=== PATIENT | male | born 1960 | race Caucasian/White ===

== ENCOUNTER 2019-10-09 17:18 | Observation (INO) | payer OTHER ==
[~2019-10-09] VITALS: Ht 182.9 cm; Wt 87.1 kg
[~2019-10-09 17:18] MED LIST: BAYER CHEWABLE81 MG PO; BRILINTA90 MG PO; LISINOPRIL10 MG PO; LISINOPRIL2.5 MG PO; LOPRESSOR25 PO; NITROGLYCERIN0.4 MG SL; PANTOPRAZOLE SO40 M1 PO; PERCOCET PO; PLAVIX 75 MG TA75 M1; SIMVASTATIN40 MG PO
[2019-10-09 17:25] VITALS: BP 153/98
[2019-10-09 17:39] LABS: ABSOLUTE BASOPHILS 0.1 thou/uL (0.0-0.2); ABSOLUTE EOSINOPHILS 0.4 thou/uL (0.0-0.7); ABSOLUTE LYMPHOCYTES 3.2 thou/uL (0.8-5.3); ABSOLUTE MONOCYTES 0.8 thou/uL (0.0-1.2); ABSOLUTE NEUTROPHILS 4.6 thou/uL (1.6-8.1); BASOPHILS 1.4 %; EOSINOPHILS 4.9 %; HEMATOCRIT 46.9 % (42.0-52.0); HEMOGLOBIN 16.1 gm/dL (14.0-18.0); LYMPHOCYTES 35.2 %; MCH 31.6 pg (26.0-34.0); MCHC 34.4 g/dL (28.0-37.0); MCV 91.9 fL (80.0-100.0); MONOCYTES 8.5 %; MPV 7.9 fl. (7.2-11.1); NUCLEATED RBCS 0 /100WBC; PLATELET COUNT* 283 thou/uL (150-400); RBC 5.11 mil/uL (4.50-6.00); RDW-CV 13.3 % (10.5-14.5); WBC 9.1 thou/uL (4.0-11.0)
[2019-10-09 17:48] LABS: CREATININE 1.3 mg/dL (0.6-1.3); POTASSIUM 4.4 mmol/L (3.5-5.1)
[2019-10-09 17:52] LABS: APTT 25.8 Seconds (25.0-31.3); PROTIME 10.6 Seconds (9.20-11.50)
[2019-10-09 18:02] LABS: ALBUMIN 4.3 g/dL (3.4-5.0); CK-MB MASS 1.6 ng/mL (<0.5-3.6); TOTAL BILIRUBIN 0.4 mg/dL (<0.1-1.0); TOTAL PROTEIN 7.5 g/dL (6.4-8.2)
[2019-10-09 21:22] VITALS: BP 164/89
[2019-10-09 22:00] VITALS: BP 150/81
[2019-10-10] VITALS (15 sets, daily range): BP systolic 116–173; BP diastolic 63–88
--- NOTE | 2019-10-10 10:40 | EKG ---
[place] [address] ELECTROCARDIOGRAM REPORT Name: SCOTT WALKER Room: [address]R.#: [id number] Admission: 10/09/19 Attend Phys: Waldo Moy, Discharge: Date of : 58 Date of Service: 10/09/19 1720 Report #: [id number] THIS REPORT FOR: //name// [facility] ED Test Date: 2019-10-09 Test Time: 17:20:26 Pat Name: SCOTT WALKER Department: Room: [facility] Gender: M Discharge Planner: NATHALIA : 1960 Requested By: Chano Grimm Order Number: [id number] MD: Maicol Yanes Measurements Intervals [place] Rate: 92 P: 72 MS: 138 QRS: -36 QRSD: 90 T: 53 QT: 333 QTc: 412 Interpretive Statements Sinus rhythm Left axis deviation Compared to ECG 06/28/2016 22:51:56 No significant changes Electronically Signed On 10-10-2019 10:40:05 CDT by Maicol Yanes [email or web address] <ELECTRONICALLY SIGNED> By: Maicol Yanes MD, FAC 10/10/19 1040 1720 1720 Maicol Yanes MD, [facility] /EPI
--- NOTE | 2019-10-10 19:11 | CARD ---
[address] [address] CARDIAC CATH REPORT Name: SCOTT WALKER Room: [address] Roxie Hernadez#: [id number] Admission: 10/09/19 Attend Phys: Waldo Moy MD Discharge: Date of : 58 Report #: [id number] THIS REPORT FOR: //name// cc: NAEEM Gaytan No family physician/PCP NAEEM - No family physician/PCP ~ APPROVED REPORT Study performed: 10/10/2019 13:10:02 Patient Details Patient Status: In-Patient Room #: The patient is a 59 year-old male Event Personnel Maicol Yanes Livestock Auctioneer, Annalee David RN Awning Hanger Supervisor, Willem Graham STOREROOM KEEPER Monitor, Willem Graham STOREROOM KEEPER Monitor, Dixie Lo RTR ScrCy laureano Jillian RN Awning Hanger Supervisor Procedures Performed Left Heart Cath w/or w/o Coronaries [id number] [facility] Left Heart Cath w/or w/o Coronaries [id number] [facility] and PTCA Indication Unstable angina , Chest pain Risk Factors Hypercholesterolemia, Hypertension, Tobacco History () Previous Procedures/Diagnoses Previous PCI Admission/Lab Medications/Medications given during procedure Glycoprotein IllbIlla Inhibitors, Heparin Unfract. Procedure Narrative The patient was brought electively to the Cardiac Catheterization Laboratory and was prepped and draped in a sterile manner. The right wrist was infiltrated with 1% Lidocaine subcutaneous anesthesia. A Slender Glidesheath sheath was inserted into the RRA. Coronary angiography was performed using coronary diagnostic catheters. The right coronary system was accessed and visualized with a JR4 catheter. The left coronary system was accessed and visualized with a JL 3.5 6fr catheter. The left ventricle was accessed and visualized with a PIG catheter. Left ventricular/[place] [address] CARDIAC CATH REPORT Name: SCOTT WALKER Room: [address]#: [id number] Admission: 10/09/19 Attend Phys: Waldo Moy MD Discharge: Date of : 58 Report #: [id number] via catheter pullback. Left ventriculogram was performed in VITALE projection. Closure device was deployed with a 6 Fr Radstat Device. The patient tolerated the procedure well and there were no complications associated with the procedure. There was no hematoma. Intraoperative Conscious Sedation Sedation start time: 1403 Case end Time: 1500 Fentanyl 2550 mcg Fluoro Time: 18.8 minutes Dose: DAP 307315 cGycm2 1967 mGy Contrast Type and Amount: Visipaque 200 ml Coronary Angiography The patient's coronary anatomy is right dominant. Diagnostic Cath Left Main 30% proximal stenosis LAD 30% proximal and 50% distal stenosis Diagonal 1 90% ostial stenosis Circumflex 30% proximal stenosis OM3 diffusely diseased with focal 90% stenosis Right Coronary proximal and mid stents with 0% stenosis RPLV ostial 70% stenosis Left Ventriculography The left ventricular ejection fraction is estimated to be 60-65%. Left ventricular wall motion abnormalities are not present. There is no mitral insufficiency. Hemodynamics The aortic pressure is 130/66 mmHg with a mean of 94 mmHg. The left ventricular pressure is 108/18 mmHg with a mean of mmHg. The left ventricular end diastolic pressure is 18 mmHg. There was no gradient across the aortic valve upon pullback. Pullback from the left ventricle to the aorta revealed no gradient across the aortic valve. PCI Technique Lesion Anticoagulation was achieved with Heparin. bolus of iv aggrastat given Percutaneous coronary intervention was performed on the distal circumflex artery segment. The lesion stenosis prior to intervention was 90% with MITCHEL 3 flow. A xb3.0 Guide Catheter was used to engage the lm ostium. A w Interventional Guidewire was [place] [address] CARDIAC CATH REPORT Name: SCOTT WALKER Room: [address] M.R.#: [id number] Admission: 10/09/19 Attend Phys: Waldo Moy MD Discharge: Date of : 58 Report #: [id number] BALLOON DILATION because of tortuosity of the circumflex, and acute takeoff of the 3rd marginal artery, the guide wire was not able to be advanced into the distal circumflex. Additional efforts were abandoned Final angiography reveals 90 % stenosis with MITCHEL 3 flow. PCI Technique Lesion 2 Percutaneous Coronary Intervention was performed on the first diagonal branch segment. Percutaneous coronary intervention was performed on the first diagonal branch segment. The lesion stenosis prior to intervention was 90% with MITCHEL 3 flow. A xb3.0 Guide Catheter was used to engage the lm ostium. A bmw Interventional Guidewire was used to cross the lesion. Balloon Dilation Unable to advance bmw wire into diagonal artery because of acute takeoff of the diagonal from the lad. BMW was placed into the distal lad, and a [employer] flex wire was used in an effort to advance the wire into the diagonal artery. These efforts were also unsuccessful, and further attempts at wiring the vessel were abandoned. Final angiography reveals 90 % stenosis with MITCHEL 3 flow. Conclusion 1. 90% stenosis of the ostium of a medium sized first diagonal branch of the lad 2. long diffusely diseased 3rd margianl branch of the circumflex with a mid 90% stenosis 3. patent stents in the rca 4. LVEF 60-65% 5. unsuccessful efforts at advancing a guide wire into the distal circumflex and first diagonal artery because of tortuosity and acute angle of takeoff 6. additional efforts were abandoned Recommendations Cardiac Rehabilitation Referral [place] [address] CARDIAC CATH REPORT Name: SCOTT WALKER Room: [address] Roxie Hernadez#: [id number] Admission: 10/09/19 Attend Phys: Waldo Moy MD Discharge: Date of : 58 Report #: [id number] Medications Administered Clopidogrel <ELECTRONICALLY SIGNED> By: Maicol Yanes MD, FAC 10/10/191910 10 demi Yanes MD, FAC /INF
[2019-10-11] VITALS: BP 127/74
[2019-10-11 04:00] VITALS: BP 115/65
[2019-10-11 05:12] LABS: HEMATOCRIT 40.7 % (42.0-52.0); MCH 31.6 pg (26.0-34.0); MCHC 34.4 g/dL (28.0-37.0); RBC 4.43 mil/uL (4.50-6.00); RDW-CV 13.6 % (10.5-14.5); WBC 8.3 thou/uL (4.0-11.0)
[2019-10-11 05:44] LABS: CHOLESTEROL 144 mg/dL (<200); HDL CHOLESTEROL 29 mg/dL (>40); LDL CHOLESTEROL 91 mg/dL (<100); SERUM ASSESSMENT CLEAR; TRIGLYCERIDE 123 mg/dL (<150); VLDL 25 mg/dL (<40)
[2019-10-11 07:40] VITALS: BP 115/62
[2019-10-11] MEDS ORDERED: LIPITOR40 MG PO (10:58)
[2019-10-11] MEDS ORDERED: NITROSTAT0.4 M1 SUBLING (10:58)
[2019-10-11] MEDS ORDERED: METOPROLOL TART25 MG PO (10:59)
[2019-10-11] MEDS ORDERED: PLAVIX 75 MG TA75 MG PO (10:59)
[2019-10-11] MEDS ORDERED: LISINOPRIL2.5 M1 PO (11:00)
[2019-10-11] MEDS ORDERED: NICOTINE TRANSD14 M1 TRANSDERM (11:04)
[2019-10-11 11:05] VITALS: BP 115/62
[2019-10-11] MEDS ORDERED: ACETAMINOPHEN650 M2 PO (11:05)
[2019-10-11 11:10] VITALS: BP 115/62
[2019-10-11 11:20] VITALS: BP 115/62
--- NOTE | 2019-10-11 12:51 | EKG ---
[place] [address] ELECTROCARDIOGRAM REPORT Name: SCOTT WALKER Room: [address]#: [id number] Admission: 10/09/19 Attend Phys: Waldo Moy, Discharge: 10/11/19 Date of : 58 Date of Service: 10/10/19 1833 Report #: [id number] THIS REPORT FOR: //name// [facility] Test Date: 2019-10-10 Test Time: 18:33:36 Pat Name: SCOTT WALKER Department: Room: [place] [address] Gender: M Bottom Scrubber: GARRET : 1960 Requested By: Maicol Yanes Order Number: [id number] Reji MD: Kalpesh Moyer Measurements Intervals [place] Rate: 59 P: 48 [place]: 144 QRS: -25 QRSD: 92 T: 34 QT: 396 QTc: 393 Interpretive Statements Sinus rhythm Borderline left axis deviation Abnormal R-wave progression, early transition Compared to ECG 10/09/2019 17:20:26 No significant changes Electronically Signed On 10-11-2019 12:51:17 CDT by Kalpesh Moyer [email or web address] <ELECTRONICALLY SIGNED> By: Kalpesh Moyer MD, FAC 10/11/19 1251 1833 1833 Kalpesh Moyer MD, [facility] /EPI
--- NOTE | 2019-10-11 13:01 | EKG ---
[place] [address] ELECTROCARDIOGRAM REPORT Name: SCOTT WALKER Room: [address]#: [id number] Admission: 10/09/19 Attend Phys: Waldo Moy, Discharge: 10/11/19 Date of : 58 Date of Service: 10/11/19 0624 Report #: [id number] THIS REPORT FOR: //name// [facility] Test Date: 2019-10-11 Test Time: 06:24:08 Pat Name: SCOTT WALKER Department: Room: [place] [address] Gender: M Resident Care Associate: [email or web address] : 1960 Requested By: Maicol Yanes Order Number: [id number] Reji MD: Kalpesh Moyer Measurements Intervals [place] Rate: 57 P: 55 [place]: 58 QRS: -15 QRSD: 89 T: 60 QT: 408 QTc: 398 Interpretive Statements Sinus rhythm Short KS interval Borderline left axis deviation Nonspecific T abnormalities, lateral leads Compared to ECG 10/09/2019 17:20:26 Short [place] interval now present T-wave abnormality now present Electronically Signed On 10-11-2019 13:01:10 CDT by Kalpesh Moyer [email or web address] <ELECTRONICALLY SIGNED> By: Kalpesh Moyer MD, FACC 10/11/19 1301 Kalpesh Moyer MD, FACC /EPI
--- NOTE | 2019-10-12 14:43 | CON ---
[address] [address] CONSULTATION Name: SCOTT WALKER Room: [address] Roxie Hernadez#: [id number] Admission: 10/09/19 Attend Phys: Waldo Moy MD Discharge: 10/11/19 Date of : 58 Report #: [id number] THIS REPORT FOR: //name// cc: NAEEM - No family physician/PCP FAM - No family physician/PCP ~ THIS REPORT FOR: //name// CC: NAEEM physician/PCP Waldo Moy DATE OF SERVICE: 10/10/2019 CARDIOLOGY CONSULTATION HISTORY OF PRESENT ILLNESS: The patient is a 59-year-old single white male who I was asked to see in the hospital today after he complained of chest pain. The history was obtained from the patient. There are not a lot of old records available. He states that in 2012, he was admitted here to [place] with chest pain. Apparently, Dr. Roberto placed 2 coronary stents to his right radial artery. He has done well since that time. He has been seen on an annual basis by Dr. Roberto since that time. He last saw Dr. Roberto in 10/2018. He does not exercise on a regular basis. He has had no recent stress test. He was doing well until yesterday, he was working in the yard, he felt a squeeze in his chest, went into his left arm. It is similar to what he had in 2013. He felt somewhat short of breath, but no nausea. He took a nitroglycerin that seemed to help. His son drove him to the Emergency Room here at [place]. He was given another nitroglycerin with pain resolved. He has had no further chest pain since that time. He denied recent fever or cough. He denied the pain being related to anything he ate. He had no belching. He has had no bleeding, trauma to his chest. He does get short of breath if he exerts himself, but has had no edema. He denied any palpitation or syncope. PAST MEDICAL AND SURGICAL HISTORY: Appendectomy, shoulder surgery a year and a half ago. He has a history of hypertension, hyperlipidemia. No history of diabetes. MEDICATIONS: His previous medications include Zocor, Plavix, metoprolol, lisinopril. He ran out of all his medications several months ago. He does take an aspirin a day. ALLERGIES: He has no known drug allergies. FAMILY HISTORY: His brother had a stent. SOCIAL HISTORY: He is , lives with son in [place], [place]. 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 [place] [address] CONSULTATION Name: SCOTT WALKER Room: [address] Roxie Hernadez#: [id number] Admission: 10/09/19 Attend Phys: Waldo Moy MD Discharge: 10/11/19 Date of : 58 Report #: [id number] time. Unfortunately, he has no medical insurance. Smokes half pack of cigarettes a day. No alcohol abuse, no illicit drug use. REVIEW OF SYSTEMS: No history of stroke, asthma, liver disease, kidney disease, cancer, psychiatric illness, chronic skin condition. PHYSICAL EXAMINATION: GENERAL: Revealed a middle-aged male, lying in bed, appeared in no distress. VITAL SIGNS: He had a blood pressure of 140/80, pulse 60. He is afebrile. HEENT: He was anicteric. Conjunctivae are pink. Mucous membranes moist. NECK: Veins nondistended. No carotid bruits. Neck supple. CHEST: Clear to auscultation. CARDIAC: Regular rate and rhythm without murmur. ABDOMEN: Soft. EXTREMITIES: Had no edema. Posterior tibial pulse 2+ bilaterally. SKIN: Warm and dry. NEUROLOGIC: Nonfocal. LYMPH: No adenopathy. MUSCULOSKELETAL: No joint effusions. IMAGING DATA: ECG in the Emergency Room yesterday showed a sinus rhythm with nonspecific ST and T-wave change. His workup, he had a portable chest x-ray performed in the Emergency Room last night that showed no acute abnormality. LABORATORY DATA: He had lab work in the Emergency Room yesterday, sodium 139, creatinine 1.3. His liver function studies were normal. Troponin 0.08. Previous LDL in 2013 was 148. White blood cell count 9.1, hemoglobin 16.1. IMPRESSION AND RECOMMENDATIONS: 1. Unstable angina. Previous stent. Recommend cardiac catheterization. 2. Hypertension. The patient ran out of his beta marco and ARUNA inhibitor. 3. Hyperlipidemia. The patient had a statin drug. 4. Tobacco abuse. <ELECTRONICALLY SIGNED> By: Maicol Yanes MD, FACC 10/12/19 1443 0847 [id number] Yanni Yanes MD, FACC /nt
== END 2019-10-11 11:55 | disposition home or self-care (01) ==
LOC: M.ERS 17:18 → M.TBA-ER 18:40 → M.2W 21:45
PROVIDERS: Family Medicine; Internal Medicine Cardiovascular Disease; ADMIT Internal Medicine; ATTEND Internal Medicine
DX: Z03.818 Encounter for observation for suspected exposure to other biological agents ruled out (principal); I25.110 Atherosclerotic heart disease of native coronary artery with unstable angina pectoris; E78.00 Pure hypercholesterolemia, unspecified; I10 Essential (primary) hypertension; F17.210 Nicotine dependence, cigarettes, uncomplicated

== ENCOUNTER 2020-06-27 04:15 | Observation (INO) | payer OTHER ==
[~2020-06-27] VITALS: Ht 182.9 cm; Wt 88.0 kg
[~2020-06-27 04:15] MED LIST changes: +ACETAMINOPHEN650 M2 PO; +LIPITOR40 MG PO; +LISINOPRIL2.5 M1 PO; +METOPROLOL TART25 MG PO; +NICOTINE TRANSD14 M1 TRANSDERM; +NITROSTAT0.4 M1 SUBLING; +PLAVIX 75 MG TA75 MG PO
[2020-06-27 04:22] VITALS: BP 166/76
[2020-06-27 04:41] LABS: ABSOLUTE LYMPHOCYTES 3.3 thou/uL (0.8-5.3)
[2020-06-27 04:43] LABS: ABSOLUTE BASOPHILS 0.1 thou/uL (0.0-0.2); ABSOLUTE EOSINOPHILS 0.8 thou/uL (0.0-0.7); ABSOLUTE MONOCYTES 0.6 thou/uL (0.0-1.2); ABSOLUTE NEUTROPHILS 5.8 thou/uL (1.6-8.1); BASOPHILS 1.2 %; EOSINOPHILS 7.2 %; HEMATOCRIT 41.6 % (42.0-52.0); HEMOGLOBIN 14.1 gm/dL (14.0-18.0); LYMPHOCYTES 31.1 %; MCH 31.8 pg (26.0-34.0); MCHC 33.8 g/dL (28.0-37.0); MCV 94.2 fL (80.0-100.0); MONOCYTES 5.9 %; MPV 7.6 fl. (7.2-11.1); NUCLEATED RBCS 0 /100WBC; PLATELET COUNT* 242 thou/uL (150-400); POLYS 54.6 %; RBC 4.42 mil/uL (4.50-6.00); WBC 10.5 thou/uL (4.0-11.0)
[2020-06-27 04:53] LABS: POTASSIUM 4.4 mmol/L (3.5-5.1)
[2020-06-27 04:56] LABS: PROTIME 10.4 Seconds (9.20-11.50)
[2020-06-27 05:00] LABS: INFLUENZA A ANTIGEN Negative (Negative); INFLUENZA B ANTIGEN Negative (Negative)
[2020-06-27 05:03] LABS: ALBUMIN 3.9 g/dL (3.4-5.0); TOTAL BILIRUBIN 0.5 mg/dL (<0.1-1.0); TOTAL PROTEIN 7.3 g/dL (6.4-8.2)
[2020-06-27 06:20] VITALS: BP 146/71
[2020-06-27 06:32] VITALS: BP 147/78
[2020-06-27 08:21] VITALS: BP 116/60
--- NOTE | 2020-06-27 10:02 | EKG ---
[place] [address] ELECTROCARDIOGRAM REPORT Name: SCOTT WALKER [address] [id number] Admission: 06/27/20 Attend Phys: Lizet Rodriguez MD Discharge: Date of : 58 Date of Service: 06/27/20 0426 Report #: [id number] THIS REPORT FOR: //name// [facility] ED Test Date: 2020-06-27 Test Time: 04:26:12 Pat Name: SCOTT GARRETTABE Department: Room: [facility] Gender: M Cane Flume Feeding Machine Operator: ZACH : 1960 Requested By: Teresa Guzman Order Number: [id number] MD: Maicol Yanes Measurements Intervals [place] Rate: 60 P: 44 SC: 140 QRS: -27 QRSD: 96 T: 33 QT: 401 QTc: 401 Interpretive Statements Sinus rhythm Borderline left axis deviation Compared to ECG 10/11/2019 06:24:08 T-wave abnormality no longer present Electronically Signed On 06-27-2020 10:02:07 CDT by Maicol Yanes [email or web address] <ELECTRONICALLY SIGNED> By: Maicol Yanes MD, FACC 06/27/20 1002 0426 0426 Maicol Yanes MD, [facility] /EPI
[2020-06-27 12:00] VITALS: BP 137/62
--- NOTE | 2020-06-27 12:24 | NUR ---
Pt is A&O. Resides at home with family. Independent. No DME. No hx of HH or SNF. Pt to dc home later today if stress test is negative. No needs anticipated.
--- NOTE | 2020-06-27 15:38 | CON ---
[address] [address] CONSULTATION Name: SCOTT WALKER Room: [address] Roxie Hernadez#: [id number] Admission: 06/27/20 Attend Phys: Lizet Rodriguez MD Discharge: Date of : 58 Report #: [id number] THIS REPORT FOR: cc: FAM - No family physician/PCP FAM - No family physician/PCP Maicol Yanes MD [facility] ~ DATE OF SERVICE: 06/27/2020 CARDIOLOGY CONSULTATION HISTORY OF PRESENT ILLNESS: The patient is a 60-year-old single white male who I was asked to see in the hospital today after he complained of being dizzy. The patient initially presented in 2012 with chest pain. He was seen by Dr. Roberto who placed 2 coronary stents. He has done well since that time. He was actually admitted here to [facility] last year, 09/2019 when he felt a tightness in his chest that went into his arm. I saw him in consultation and performed cardiac catheterization on 10/10/2019 from the radial artery. Results showed ejection fraction of 60%. There was a 90% narrowing of the ostium of the first diagonal branch of the LAD. The third marginal branch of circumflex had a 90% stenosis. He had stents in the right coronary artery and had no significant restenosis. I then attempted angioplasty because of tortuosity of the circumflex. I was unable to advance a wire. Medical therapy was recommended. The patient has done well since that time. Denies any recent chest pain. He notes that yesterday he was at work when he felt lightheaded and dizzy. He did not fall down. He denies any palpitations. Denies any recent vomiting, diarrhea or bleeding. He did feel somewhat short of breath. He finally drove himself to the Emergency Room this morning and was admitted for further evaluation and treatment. PAST MEDICAL HISTORY: Significant for shoulder surgery, appendectomy, back surgery, hypertension, hyperlipidemia. CURRENT MEDICATIONS: Consist of Plavix, Lipitor, lisinopril, metoprolol. ALLERGIES: He has no known drug allergies. FAMILY HISTORY: His brother had stent. SOCIAL HISTORY: He is single, lives in [place]. Smokes less than half pack of cigarettes a day. No alcohol abuse, no illicit drug use. REVIEW OF SYSTEMS: No history of stroke, asthma, liver disease, GI bleeding, kidney disease, cancer, psychiatric illness, [place] [address] CONSULTATION Name: SCOTT WALKER Debby Room: [address]#: [id number] Admission: 06/27/20 Attend Phys: Lizet Rodriguez MD Discharge: Date of : 58 Report #: [id number] PHYSICAL EXAMINATION: GENERAL: Revealed a middle-aged male, appeared in no distress. VITAL SIGNS: His blood pressure 140/70, pulse of 60. He is afebrile. HEENT: He was anicteric. Conjunctivae pink. Mucous membranes are moist. NECK: Veins nondistended. No carotid bruits. Neck supple. CHEST: Clear to auscultation. CARDIOVASCULAR: Regular rate and rhythm, no murmur. ABDOMEN: Soft. EXTREMITIES: Had no edema. Posterior tibial pulse 2+ bilaterally. SKIN: Cool and dry. NEUROLOGIC: Nonfocal. LYMPH: No adenopathy. MUSCULOSKELETAL: No joint effusion. LABORATORY DATA: His workup so far, he appears to be in a sinus rhythm. He had x-rays in the Emergency Room last night that included a chest x-ray that showed normal heart size, clear lung hdz, chronic lung changes. Previous rib fracture that was healed. There was scoliosis. His lab work, sodium 140, creatinine 1.0. His SGOT 53, SGPT 137, alkaline phosphatase is 146. His troponins were all less than 0.06. BNP 91. White blood cell count 10.5, hemoglobin 14.1. His COVID antigen test was negative. IMPRESSION AND RECOMMENDATIONS: 1. Lightheaded and dizzy. No evidence of any arrhythmia. Possible dehydration. 2. Shortness of breath. Suspect chronic obstructive pulmonary disease. 3. Coronary artery disease. Previous stents. I would continue Plavix. No recent angina. I would not recommend stress testing at this time. 4. Hypertension. The patient is on a beta-marco and ARUNA inhibitor. 5. Hyperlipidemia. The patient is on a statin drug. 6. Tobacco abuse. Recommended he attempt smoking. <ELECTRONICALLY SIGNED> By: Maicol Yanes MD, [facility] 06/27/20 1538 0838 [id number] Yanes MD, FACC /nt
[2020-06-27 16:22] VITALS: BP 125/62
--- NOTE | 2020-06-27 19:03 | NUR ---
Pt denies chest pain. VSS. SB-SR per monitor. Will likely discharge tomorrow.
[2020-06-28 00:31] VITALS: BP 117/59
[2020-06-28 03:43] VITALS: BP 101/61
[2020-06-28 04:31] LABS: ALBUMIN 3.2 g/dL (3.4-5.0); ALKALINE PHOSPHATASE 121 U/L (46-116); ANION GAP 12 mmol/L (7-16); BUN 10 mg/dL (7-18); CHLORIDE 106 mmol/L (98-107); CHOLESTEROL 99 mg/dL (<200); CO2 23 mmol/L (21-32); CREATININE 0.9 mg/dL (0.6-1.3); GLUCOSE 108 mg/dL (70-99); HDL CHOLESTEROL 38 mg/dL (>40); LDL CHOLESTEROL 44 mg/dL (<100); POTASSIUM 3.9 mmol/L (3.5-5.1); SGOT 32 U/L (15-37); SGPT 100 U/L (30-65); SODIUM 141 mmol/L (136-145); TC:HDL 2.6 Ratio (Not establshd); TOTAL BILIRUBIN 0.5 mg/dL (<0.1-1.0); TOTAL PROTEIN 6.2 g/dL (6.4-8.2); TRIGLYCERIDE 87 mg/dL (<150); VLDL 17 mg/dL (<40)
[2020-06-28 04:42] LABS: SERUM ASSESSMENT CLEAR
--- NOTE | 2020-06-28 06:28 | NUR ---
NO ACUTE CHANGES THROUGHOUT SHIFT. FULL ASSESSMENT COMPLETED CHARTED, ALL ROUNDINGS COMPLETED, ALL NEEDS MET. SEE CHARTING FOR DETAILS.
[2020-06-28 08:00] VITALS: BP 115/64
[2020-06-28 10:42] VITALS: BP 115/64
--- NOTE | 2020-06-28 11:04 | NUR ---
RECEIVED REPORT AROUND 0715. ASSUMED CARE. VS AND ASSESSMENT CHARTED. IV INTACT RIGHT AC. HEART MONITOR ATTACHED AT SR. PT STATED "NO" TO ANY PAIN. MEDS GIVEN PER PAR. DISCHARGE ORDERS RECEIVED. IV TAKEN OUT. HEART MONITOR OFF. PT UP ADLIB. ABLE TO DRESS SELF. DISCHARGE PAPER WORK GIVEN TO PT. COMMUNICATED UNDERSTANDING. PT LEFT UNIT VIA AMBULATORY WITH NURSING STAFF AND ALL BELONGINGS AT 1057.
== END 2020-06-28 10:57 | disposition home or self-care (01) ==
LOC: M.ERS 04:15 → M.2W 05:44 → M.TBA-ER 05:44 → M.2W 06:13
PROVIDERS: Emergency Medicine; Internal Medicine Cardiovascular Disease; ADMIT Family Medicine; ATTEND Family Medicine
DX: I25.118 Atherosclerotic heart disease of native coronary artery with other forms of angina pectoris (principal); Z20.822 Contact with and (suspected) exposure to COVID-19; I10 Essential (primary) hypertension; K21.9 Gastro-esophageal reflux disease without esophagitis; E78.5 Hyperlipidemia, unspecified; F17.200 Nicotine dependence, unspecified, uncomplicated; Z79.899 Other long term (current) drug therapy

== ENCOUNTER 2020-10-17 18:46 | Observation (INO) | payer OTHER ==
[~2020-10-17] VITALS: Ht 182.9 cm; Wt 88.0 kg
--- NOTE | ~2020-10-17 | PROC ---
[facility] [address] [place] [address] PROCEDURE REPORT Name: SCOTT WALKER Room: [address] Roxie Hernadez#: [id number] Admission: 10/18/20 Attend Phys: Ashley Teresa MD Discharge: Date of : 58 Report #: [id number] THIS REPORT FOR: cc: FAM - No family physician/PCP FAM - No family physician/PCP [facility],Medical Records Staff ~ For GI report, please see the Provation report in Perceptive 7 content. By: [id number] Records Staff JOSELYN /NATHALIA
--- NOTE | ~2020-10-17 | CON ---
[address] [address] CONSULTATION Name: SCOTT WALKER Room: [address] Roxie Hernadez#: [id number] Admission: 10/18/20 Attend Phys: Ashley Teresa MD Discharge: Date of : 58 Report #: [id number] THIS REPORT FOR: cc: FAM - No family physician/PCP FAM - No family physician/PCP Kirstin Miller MD ~ DATE OF CONSULTATION: 10/19/2020 REASON FOR CONSULTATION: Abdominal pain, nausea, vomiting and history of peptic ulcer disease. HISTORY OF PRESENT ILLNESS: This is a 60-year-old male who reports that he has had a colonoscopy about 25 years ago and is scheduled for colonoscopy as an outpatient next month. He presents with abdominal pain, which was mainly in the epigastric region. This was associated with some nausea and vomiting symptoms as well. He has been ingesting lot of ibuprofen and thinks that he may have ulcer. He denies any hematochezia or melena and he denies any hematemesis, dysphagia or odynophagia. PAST MEDICAL HISTORY: Significant for history of coronary artery disease status post stenting. The patient is on Plavix. SURGICAL HISTORY: He also history of back surgery and shoulder surgery. MEDICATIONS: He takes medication for hypertension. ALLERGIES: No known drug allergy. MEDICATIONS: Please refer to MAR. SOCIAL HISTORY: The patient denies tobacco or alcohol use. FAMILY HISTORY: Noncontributory. PHYSICAL EXAMINATION: VITAL SIGNS: Blood pressure of 123/64, respirations 20, pulse 53, temperature is 98.2. LUNGS: Clear. CARDIAC: Regular. ABDOMEN: Soft, tender to palpation in the epigastric region. Bowel sounds are positive. NEUROLOGIC: The patient is alert and oriented x 3. There is no focal neurologic deficit. LABORATORY DATA: Reveal sodium of 135, potassium 3.9, BUN is 10, creatinine [facility] [address] [place] [address] CONSULTATION Name: SCOTT WALKER Room: [address]#: [id number] Admission: 10/18/20 Attend Phys: Ashley Teresa MD Discharge: Date of : 58 Report #: [id number] 0.9. Lipase is 979, total bilirubin is 0.4, alkaline phosphatase is 113, ALT is 162 with AST of 51. WBC is 11.8 with hemoglobin of 13.8 and platelets of 274. IMAGING: CT of abdomen and pelvis was obtained. There was a trace amount of fluid adjacent to the proximal pancreas and second portion of the duodenum. This may suggest mild pancreatitis. The gallbladder appeared in the upper limits of normal without any evidence of gallbladder wall thickening or biliary ductal dilatation. There is a 1.9 cm left adrenal mass noted. ASSESSMENT AND PLAN: The patient with history of peptic ulcer disease, who has been taking a lot of ibuprofen. He also presents with mild elevation of lipase and abnormal transaminases with normal bilirubin and alkaline phosphatase. We will repeat LFTs and schedule the patient for upper endoscopy. We will make further recommendation based on finding. By: [id number] Miller MD /nt
[2020-10-17 19:04] VITALS: BP 117/67
[2020-10-17] MEDS ORDERED: FLAGYL500 M1 PO (19:10)
[2020-10-17] MEDS ORDERED: CIPRO500 M1 PO (19:10)
[2020-10-17 23:18] LABS: ABSOLUTE BASOPHILS 0.1 thou/uL (0.0-0.2); ABSOLUTE EOSINOPHILS 0.5 thou/uL (0.0-0.7); ABSOLUTE LYMPHOCYTES 2.5 thou/uL (0.8-5.3); ABSOLUTE MONOCYTES 0.8 thou/uL (0.0-1.2); BASOPHILS 0.8 %; EOSINOPHILS 4.1 %; HEMATOCRIT 39.2 % (42.0-52.0); HEMOGLOBIN 13.8 gm/dL (14.0-18.0); LYMPHOCYTES 20.9 %; MCH 32.8 pg (26.0-34.0); MCHC 35.2 g/dL (28.0-37.0); MCV 93.2 fL (80.0-100.0); MONOCYTES 6.7 %; MPV 7.4 fl. (7.2-11.1); NUCLEATED RBCS 0 /100WBC; PLATELET COUNT* 274 thou/uL (150-400); POLYS 67.5 %; RBC 4.21 mil/uL (4.50-6.00); RDW-CV 13.2 % (10.5-14.5); WBC 11.8 thou/uL (4.0-11.0)
[2020-10-17 23:45] LABS: CALCIUM 8.4 mg/dL (8.5-10.1); CREATININE 0.9 mg/dL (0.6-1.3); POTASSIUM 3.9 mmol/L (3.5-5.1)
[2020-10-17 23:49] LABS: TOTAL BILIRUBIN 0.4 mg/dL (<0.1-1.0); TOTAL PROTEIN 6.8 g/dL (6.4-8.2)
[2020-10-18 00:27] LABS: URINE BILIRUBIN NEGATIVE (Negative); URINE BLOOD NEGATIVE (Negative); URINE CLARITY CLEAR; URINE COLOR YELLOW; URINE GLUCOSE-RANDOM NEGATIVE (Negative); URINE KETONES NEGATIVE (Negative); URINE LEUKOCYTES-REFLEX NEGATIVE (Negative); URINE NITRITE-REFLEX NEGATIVE (Negative); URINE PROTEIN NEGATIVE (Negative); URINE UROBILINOGEN 0.2 E.U./dl (0.2-1.0)
[2020-10-18 08:00] VITALS: BP 111/60
[2020-10-18 11:40] VITALS: BP 118/69
[2020-10-18 13:00] VITALS: BP 131/56
[2020-10-18 13:45] VITALS: BP 131/56
[2020-10-18 20:00] VITALS: BP 118/62
[2020-10-19] VITALS: BP 115/59
[2020-10-19 11:24] LABS: ALBUMIN 3.1 g/dL (3.4-5.0); DIRECT BILIRUBIN 0.1 mg/dL (<0.1-0.3); TOTAL BILIRUBIN 0.3 mg/dL (<0.1-1.0); TOTAL PROTEIN 5.7 g/dL (6.4-8.2)
[2020-10-19 20:00] VITALS: BP 144/74
--- NOTE | 2020-10-20 02:13 | NUR ---
PT ALERT ORIENTED. UP AD MIRI IN ROOM. TELEMETRY SHOWS SR. ABD FIRM SLIGHTLY DISTENDED. PT CO PAIN 10/10 MORPHINE GIVEN Q 4 HRS. PT STATED HE IS HAVING A LOT OF FLATULENCE.
[2020-10-20 05:22] VITALS: BP 164/60
--- NOTE | 2020-10-20 07:04 | NUR ---
PT NPO SINCE O200 FOR ABD US.
--- NOTE | 2020-10-20 07:12 | NUR ---
CHANGE OF SHIFT REPORT GIVEN PATIENT SEEN IN BED RESTING ASSUMED PATIENT CARE
[2020-10-20 08:00] VITALS: BP 136/70
[2020-10-20 12:45] LABS: ABSOLUTE EOSINOPHILS 0.4 thou/uL (0.0-0.7); ABSOLUTE LYMPHOCYTES 2.5 thou/uL (0.8-5.3); ABSOLUTE MONOCYTES 0.8 thou/uL (0.0-1.2); ABSOLUTE NEUTROPHILS 3.9 thou/uL (1.6-8.1); BASOPHILS 0.3 %; EOSINOPHILS 5.1 %; HEMATOCRIT 35.1 % (42.0-52.0); HEMOGLOBIN 12.2 gm/dL (14.0-18.0); LYMPHOCYTES 33.3 %; MCH 32.8 pg (26.0-34.0); MCHC 34.7 g/dL (28.0-37.0); MCV 94.5 fL (80.0-100.0); MPV 7.9 fl. (7.2-11.1); NUCLEATED RBCS 0 /100WBC; PLATELET COUNT* 228 thou/uL (150-400); POLYS 51.3 %; RBC 3.72 mil/uL (4.50-6.00); RDW-CV 13.2 % (10.5-14.5); WBC 7.6 thou/uL (4.0-11.0)
[2020-10-20 12:54] LABS: ALBUMIN 2.9 g/dL (3.4-5.0); CREATININE 0.8 mg/dL (0.6-1.3); MAGNESIUM 1.9 mg/dL (1.8-2.4); TOTAL BILIRUBIN 0.3 mg/dL (<0.1-1.0); TOTAL PROTEIN 5.5 g/dL (6.4-8.2)
--- NOTE | 2020-10-20 13:56 | EKG ---
[place] [address] ELECTROCARDIOGRAM REPORT Name: SCOTT WALKER [address]#: [id number] Admission: 10/18/20 Attend Phys: Ashley Teresa, Discharge: Date of : 58 Date of Service: 10/17/20 [facility]ly [facility], later [facility] Report #: [id number] THIS REPORT FOR: //name// [facility] [place] ED Test Date: 2020-10-17 Test Time: 23:22:45 Pat Name: SCOTT WALKER Department: Room: [facility] Gender: M Registered Nurse Maternity: [facility] : 1960 Requested By: Abeba Winslow Order Number: [id number] MD: Alfredo Elias Measurements Intervals [place] Rate: 59 P: 48 ID: 142 QRS: -26 QRSD: 95 T: 36 QT: 414 QTc: 411 Interpretive Statements Sinus rhythm Borderline left axis deviation Compared to ECG 06/27/2020 04:26:12 No significant changes Electronically Signed On 10-20-2020 13:55:54 CDT by Alfredo Elias [email or web address] <ELECTRONICALLY SIGNED> By: Alfredo Elias MD, MERGED WITH [facility] 10/20/20 1355 [id number] Alfredo Elias MD, MERGED WITH [facility] /EPI
--- NOTE | 2020-10-20 15:25 | NUR ---
CM ASSESSMENT: PT A&O, INDEPNDENT WITH ADL'S, ACTIVE AND WORKS OUTSIDE THE HOME. PT USES 0 DME. PT HAS 0 HX OF HH OR SNF. NO CM D/C PLANNING NEEDS ANTICIPATED. CM JOSELIN REMAIN AVAILABLE TO ASSIST AND FOLLOW NEEDED.
[2020-10-20 16:00] VITALS: BP 150/77
[2020-10-20] MEDS ORDERED: PROTONIX40 M2 PO (16:03)
[2020-10-20] MEDS ORDERED: HYDROCODON-ACE1 EAC7 PO (16:03)
[2020-10-20 16:53] VITALS: BP 150/77
--- NOTE | 2020-10-20 17:24 | NUR ---
PATIENT DISCHARGED TO HOME DC INSTRUCTIONS GIVEN, COPIES GIVEN AND SIGNED IV REMOVED PERSONAL BELONGINGS RETURNED WALKED OUT AMBULATORY TO WAITING CAR
--- NOTE | 2020-10-21 14:07 | PATH ---
[address] [address] PATHOLOGY RPT PROCEDURE Name: SCOTT TURK Room: [address] Roxie Hernadez#: [id number] Admission: 10/18/20 Date of : 58 Discharge: 10/20/20 Report #: [id number] Path Case #: [id number] [facility] Accession Number: [id number] . 01 Material submitted: . gastrointestinal site - GASTRIC BIOPSY GASTRITIS R/O H. PYLORI . 01 Clinical history: . EGD IN OR [facility], VOMITING, EPIGASTRIC PAIN ABDOMINAL PAIN WITH PANCREATITIS, DUODENITIS . 02 Diagnosis: Gastric biopsy: - Moderate chronic gastritis with abundant Helicobacter pylori organisms, negative for granulomas and dysplasia/adenomatous change. (GUERDA:pit; 10/21/2020) . Special stain: H. pylori immuno QTP 10/21/2020 1027 Local . 02 Electronically signed: . Zen Benitez MD, Pathologist NPI- [id number] . 01 Gross description: . The specimen is received in formalin, labeled "Scott Turk, gastric biopsy". Received are 4 segments of pale hector tissue ranging in size from 0.2 cm to 0.5 cm in maximum dimensions. The specimen is submitted entirely in cassette A1.([facility]; 10/20/2020) [facility] 10/20/2020 1626 Local . 02 Pathologist provided ICD-10: K29.50, B96.81 . 02 CPT . 075638, G15336 Specimen Comment: A courtesy copy of this report has been sent to [phone], [phone] Specimen Comment: [phone] Specimen Comment: Report sent to / DR ROJAS Performed at: [address] [facility] [address] [id number] MD Rubens Duran MD Phone: [phone] Performed at: [address] [place], [place] [id number] [place] [address] PATHOLOGY RPT PROCEDURE Name: SCOTT TURK Room: [address] M.RHyacinth#: [id number] Admission: 10/18/20 Date of : 58 Discharge: 10/20/20 Report #: [id number] Path Case #: [id number] MD Zen Benitez MD Phone: [phone]
== END 2020-10-20 17:40 | disposition home or self-care (01) ==
LOC: M.ERS 18:46 → M.TBA-ER 10-18 03:55 → M.2W 10-18 03:55
PROVIDERS: Internal Medicine; Internal Medicine Gastroenterology; Personal Emergency Response Attendant; ADMIT Internal Medicine; ATTEND Internal Medicine
DX: K85.90 Acute pancreatitis without necrosis or infection, unspecified (principal); K29.80 Duodenitis without bleeding; K27.9 Peptic ulcer, site unspecified, unspecified as acute or chronic, without hemorrhage or perforation; Z20.822 Contact with and (suspected) exposure to COVID-19; K29.20 Alcoholic gastritis without bleeding; I25.10 Atherosclerotic heart disease of native coronary artery without angina pectoris; R65.10 Systemic inflammatory response syndrome (SIRS) of non-infectious origin without acute organ dysfunction; I10 Essential (primary) hypertension; F17.210 Nicotine dependence, cigarettes, uncomplicated; Z79.02 Long term (current) use of antithrombotics/antiplatelets; Z79.899 Other long term (current) drug therapy; Z98.890 Other specified postprocedural states

== ENCOUNTER → 2020-11-17 | Outpatient (CLI) | payer OTHER ==
[~2020-11-17] MED LIST changes: +CIPRO500 M1 PO; +FLAGYL500 M1 PO; +HYDROCODON-ACE1 EAC7 PO; +PROTONIX40 M2 PO
== END ==
LOC: M.LAB 07:59
PROVIDERS: ATTEND Anesthesiology
DX: Z01.812 Encounter for preprocedural laboratory examination (principal); Z20.822 Contact with and (suspected) exposure to COVID-19

== ENCOUNTER 2021-02-18 22:06 | Emergency (ER) | payer OTHER ==
[~2021-02-18] VITALS: Ht 182.9 cm; Wt 83.9 kg
[2021-02-18 22:54] VITALS: BP 131/81
== END 2021-02-18 22:54 | disposition home or self-care (01) ==
LOC: M.ERS 22:06
DX: Z20.822 Contact with and (suspected) exposure to COVID-19 (principal); I10 Essential (primary) hypertension; Z95.5 Presence of coronary angioplasty implant and graft; Z90.49 Acquired absence of other specified parts of digestive tract; Z98.890 Other specified postprocedural states; Z79.899 Other long term (current) drug therapy